=== PATIENT | male | born 1980 ===

== ENCOUNTER 2021-04-07 16:47 | Emergency (ER) | payer MEDICAID ==
[~2021-04-07] VITALS: Ht 177.8 cm; Wt 75.0 kg
[2021-04-07 17:41] LABS: BASOPHILS % 0.5 % (0.0-2.0); EOSINOPHILS % 0.6 % (0.0-5.0); HEMATOCRIT. 46.7 % (42.0-52.0); HEMOGLOBIN. 15.5 g/dL (14.0-18.0); LYMPHOCYTES % 41.9 % (20.0-50.0); MEAN CORPUSCULAR VOLUME 90.1 fL (80.0-94.0); MEAN PLATELET VOLUME 7.5 fl (7.4-10.4); MONOCYTES % 10.2 % (2.0-8.0); NEUTROPHILS % 46.8 % (40.0-76.0); PLATELET 252 x1000/uL (130-400); RED BLOOD CELL COUNT 5.18 mill/uL (4.7-6.1)
[2021-04-07 17:47] LABS: CHLORIDE 108 mEq/L (98-107)
[2021-04-07 18:31] LABS: ETHANOL BLOOD 310 mg/dL
[2021-04-07 19:35] LABS: CLARITY URINE CLEAR (CLEAR); COLOR URINE YELLOW (YELLOW); KETONES URINE NEGATIVE (NEGATIVE); LEUKOCYTE ESTERASE URINE NEGATIVE (NEGATIVE); NITRITE URINE NEGATIVE (NEGATIVE); OCCULT BLOOD URINE NEGATIVE (NEGATIVE); PH URINE 6.5 (4.5-8.0); PROTEIN URINE TRACE (NEGATIVE); SPECIFIC GRAVITY URINE 1.014 (1.005-1.030)
[2021-04-07 19:45] LABS: *COCAINE SCREEN URINE NEGATIVE (NEGATIVE)
[2021-04-07] MEDS ORDERED: QUETIAPINE FUMARATE 25MG TABLET PO SCH (19:45)
[2021-04-07 19:46] LABS: *AMPHETAMINES SCREEN URINE NEGATIVE (NEGATIVE); *BARBITURATES SCREEN URINE NEGATIVE (NEGATIVE); *BENZODIAZEPINES SCREEN URINE NEGATIVE (NEGATIVE); CANNABINOID URINE SCREEN NEGATIVE (NEGATIVE); METHADONE URINE SCREEN NEGATIVE (NEGATIVE); OPIATES URINE SCREEN NEGATIVE (NEGATIVE); PHENCYCLIDINE URINE SCREEN NEGATIVE (NEGATIVE)
[2021-04-08 03:11] VITALS: BP 146/86
== END 2021-04-08 04:17 | disposition home or self-care (01) ==
LOC: ER 16:59
DX: G92.9 Unspecified toxic encephalopathy (principal); I10 Essential (primary) hypertension; F10.10 Alcohol abuse, uncomplicated; Y90.8 Blood alcohol level of 240 mg/100 ml or more; F17.290 Nicotine dependence, other tobacco product, uncomplicated; F15.10 Other stimulant abuse, uncomplicated; J45.909 Unspecified asthma, uncomplicated
CPT/HCPCS: 36415; 80053; 80305; 80320; 81003; 82962; 85025; 99285; G0480

== ENCOUNTER 2022-02-25 15:36 | Emergency (ER) | payer MEDICAID ==
[~2022-02-25] VITALS: Ht 182.9 cm; Wt 78.0 kg
[2022-02-25] MEDS ORDERED: QUETIAPINE FUMARATE 50MG TABLET PO SCH (16:15)
[2022-02-25 16:34] LABS: BASOPHILS % 0.3 % (0.0-2.0); HEMATOCRIT. 44.2 % (42.0-52.0); HEMOGLOBIN. 15.2 g/dL (14.0-18.0); LYMPHOCYTES % 11.9 % (20.0-50.0); MEAN CORPUSCULAR HEMOGLOBIN 30.6 pg (28.0-32.0); MEAN CORPUSCULAR VOLUME 88.6 fL (80.0-94.0); MEAN PLATELET VOLUME 8.3 fl (7.4-10.4); MONOCYTES % 5.1 % (2.0-8.0); NEUTROPHILS % 82.7 % (40.0-76.0); PLATELET 362 x1000/uL (130-400); RED BLOOD CELL COUNT 4.99 mill/uL (4.7-6.1); RED CELL DISTRIBUTION WIDTH 13.9 % (11.6-14.6)
[2022-02-25 16:43] LABS: CHLORIDE 105 mEq/L (98-107)
[2022-02-25 16:49] LABS: ETHANOL BLOOD < 10 mg/dL
[2022-02-25] MEDS ORDERED: TRAZODONE HCL 50MG TABLET PO STA (16:59)
[2022-02-25 22:00] LABS: CLARITY URINE CLEAR (CLEAR); COLOR URINE DARK YELLOW (YELLOW); KETONES URINE NEGATIVE (NEGATIVE); LEUKOCYTE ESTERASE URINE TRACE (NEGATIVE); NITRITE URINE NEGATIVE (NEGATIVE); OCCULT BLOOD URINE NEGATIVE (NEGATIVE); PH URINE 6.5 (4.5-8.0); PROTEIN URINE TRACE (NEGATIVE); SPECIFIC GRAVITY URINE 1.027 (1.005-1.030)
[2022-02-25 22:12] LABS: *AMPHETAMINES SCREEN URINE NEGATIVE (NEGATIVE); *BARBITURATES SCREEN URINE NEGATIVE (NEGATIVE); *BENZODIAZEPINES SCREEN URINE PRESUMTIVE POSITIVE (NEGATIVE); *COCAINE SCREEN URINE NEGATIVE (NEGATIVE); CANNABINOID URINE SCREEN NEGATIVE (NEGATIVE); METHADONE URINE SCREEN NEGATIVE (NEGATIVE); OPIATES URINE SCREEN NEGATIVE (NEGATIVE); PHENCYCLIDINE URINE SCREEN NEGATIVE (NEGATIVE)
[2022-02-26] MEDS ORDERED: QUETIAPINE FUMARATE 50MG TABLET PO SCH ×3 (01:00→21:00)
[2022-02-26] MEDS ORDERED: TRAZODONE HCL 50MG TABLET PO NR (01:00)
[2022-02-26] MEDS: GABAPENTIN 300MG CAPSULE PO SCH ×3 (10:43→17:48)
[2022-02-26] MEDS: RISPERIDONE 1MG TABLET PO SCH (10:43)
[2022-02-26] MEDS ORDERED: TRAZODONE HCL 50MG TABLET PO SCH (21:00)
[2022-02-27] MEDS: RISPERIDONE 1MG TABLET PO SCH (09:02)
[2022-02-27] MEDS: GABAPENTIN 300MG CAPSULE PO SCH ×2 (09:02→13:08)
[2022-02-27 18:24] VITALS: BP 119/72
== END 2022-02-27 18:36 ==
LOC: ER 15:36
DX: F32.A Depression, unspecified (principal); S00.212A Abrasion of left eyelid and periocular area, initial encounter; R45.851 Suicidal ideations; J45.909 Unspecified asthma, uncomplicated; G62.9 Polyneuropathy, unspecified; Z20.822 Contact with and (suspected) exposure to COVID-19; Z75.1 Person awaiting admission to adequate facility elsewhere; W01.0XXA Fall on same level from slipping, tripping and stumbling without subsequent striking against object, initial encounter; Y93.89 Activity, other specified; Y92.488 Other paved roadways as the place of occurrence of the external cause
CPT/HCPCS: 36415; 70450; 80053; 80305; 80307; 80320; 80329; 81003; 85025; 87426; 99284; C9803; G0480